=== PATIENT | female | born 1995 | race Caucasian/White ===

== ENCOUNTER 2016-08-24 20:23 | Emergency (ER) | payer OTHER ==
[~2016-08-24] VITALS: Ht 152.4 cm; Wt 52.2 kg
[2016-08-24 20:33] VITALS: BP 130/73
--- NOTE | 2016-08-24 21:07 | ED THROAT/DENTAL COMPLAINT ---
History of Present Illness General Chief Complaint: General Adult Stated Complaint: LEFT SIDE NECK SWELLING Source: patient, old records Exam Limitations: no limitations Vital Signs & Intake/Output Vital Signs & Intake/Output Vital Signs Date Time Temp Pulse Resp B/P B/P Pulse O2 O2 Flow FiO2 Mean Ox Delivery Rate 08/24 2118 98 Room Air 08/24 2032 97.6 93 18 130/73 100 Room Air Allergies Coded Allergies: No Known Allergies (08/24/16) Reconcile Medications Amoxicillin/Potassium Clav (Augmentin 875-125 Tablet) 875 MG-125 MG TABLET 1 TAB PO BID sialdenitis Triage Note: PT TO ED FOR "SALIVA GLAND SWELLING UNDER MY TONGUE" Triage Nurses Notes Reviewed? yes Onset: Abrupt Duration: day(s): (2), constant Timing: recent history Injury Environment: home Severity: moderate Severity Numbers: 6 No Modifying Factors: none Associated Symptoms: denies : No Patient currently breastfeeds: No HPI: 20-year-old female presents to ER for evaluation complaining of salivary gland swelling pain for the past 2 days after eating popcorn. She states she's had a history of similar symptoms in the past and states that normally she is able to elicit pus however states she's been attempting without success. No sore throat no fever no chills no rhinorrhea congestion or ear pain. She is not taken anything for her symptoms no modifying factors or associated symptoms otherwise. Pain is aching constant nonradiating (MIRIAM JASSO) Past History Travel History Traveled to [place] past 21 day No Medical History Any Pertinent Medical History? 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 No (MIRIAM JASSO) Review of Systems Review of Systems Constitutional: Reports: see HPI. All Other Systems: Reviewed and Negative Comments Review of systems: See HPI, All other systems negative. Constitutional, no chills no fever, no malaise HEENT: no sore throat no congestion, no ear pain Cardiovascular: No chest pain , no palpitation Skin: no rashes, no change in skin Respiratory: No dyspnea no cough no sputum no hemoptysis GI: No nausea no vomiting, no diarrhea, no bloating/constipation Muscle skeletal: No joint pain, no back pain, no neck pain, Neurologic: No numbness no confusion, no headache Psych: No stress no depression,. Heme/endocrine: No bruising no bleeding Immunology: No lymphadenopathy (MIRIAM JASSO) Physical Exam Physical Exam General Appearance: well developed/nourished, no apparent distress, alert, awake Mouth/Throat: pharynx normal Comments: Well-developed well-nourished patient in no apparent distress. Head/Face: Atraumatic, no maxillary/frontal sinus tenderness, no facial swelling Eyes: PERRL, EOMI, no conjunctival injection Ear:External auditory canal and Tympanic membranes clear, no erythema, no FB. Nose: atraumatic.Normal inspection Throat: Moist mucous membranes.slightly swollen tender submandibular left sided duct, no discharge illicited, Pharynx normal. No pharyngeal erythema/exudate seen. No stridor/drooling or assymetry. No swelling or edema. Neck: Supple, anterior cervical left sided lymphadenopathy, FROM Back: FROM Cardiovascular: Regular rate and rhythms no murmurs Respiratory: Chest nontender.There were no bony deformities, no asymmetry. No respiratory distress. Patient speaking in full complete sentences. Breath sounds clear to auscultation bilaterally: NO W/R/R Extremities: full range of motion Neuro: awake, alert, and oriented to person, place and time. There were no obvious focal neurologic abnormalities. Skin: Warm & dry;No appreciable rash on exposed skin Psych: Mood affect normal, normal memory normal judgment. Core Measures ACS in differential dx? No Severe Sepsis Present: No Septic Shock Present: No (MIRIAM JASSO) Progress Differential Diagnosis: epiglottitis, Ludwigs angina, odontogenic abscess, cat- tonsillar abscess, stomatitis/gingivitis, strep pharyngitis, sialadenitis, Sj gren's syndrome , MALIGancy Plan of Care: I discussed with the patient at length all of their results. I had an extensive conversation regarding need for close follow up with their primary care physician this week as well as return precautions. I answered all of their questions, they feel comfortable with the plan and follow-up care. I discussed the medications that they will receive with the patient. I gave them signs and symptoms that could indicate an adverse reaction. I have advised them to limit their activities until they can see how they respond to the medication. (MIRIAM JASSO) Departure Departure Time of Disposition: 2115 Disposition: HOME OR SELF CARE Condition: Stable Clinical Impression Primary Impression: Sialadenitis Referrals: PATIENT HAS NO PRIMARY CARE DR (PCP/Family) Additional Instructions: hard tart candy losenges as discussed. augmentin as directed. salt water gargles , return with any concerns. this was sent to [facility] Departure Forms: Customer Survey General Discharge Information Prescriptions: Current Visit Scripts Amoxicillin/Potassium Clav (Augmentin 875-125 Tablet) 1 TAB PO BID #14 TAB (MIRIAM JASSO) PA/RN [facility] Co-Sign Statement Statement: ED Attending supervision documentation- [] I saw and evaluated the patient. I have also reviewed all the pertinent lab results and diagnostic results. I agree with the findings and the plan of care as documented in the PA's/RN [facility]'s documentation. [X] I have reviewed the ED Record and agree with the PA's/RN [facility]'s documentation. [] Additions or exceptions (if any) to the PAs/RN [facility]'s note and plan are summarized below: [] (KURT LOVE,BRENDON)
[2016-08-24] MEDS ORDERED: AUGMENTIN 875-1 EACH PO (21:17)
== END 2016-08-24 21:20 ==
LOC: ERH 20:23
DX: K11.20 Sialoadenitis, unspecified (principal)